=== PATIENT | male | born 1975 | race Two or more races ===

== ENCOUNTER 2022-02-24 09:46 | Outpatient (AMB) | payer BC, SELFPAY ==
[2022-02-24 10:32] VITALS: BP 129/84; PULSE 65; TEMP 36.7; BMI 29.5
--- NOTE | 2022-02-24 10:32 | URONOTE_ITS ---
Intake Vital Signs 02/24/22 10:32 Height 1.83 m Height Method Stated Weight 98.6 kg Weight Measurement Method Standing Scale BMI 29.5 Temp 98.1 F Temp Source Temporal Artery Scan Pulse 65 Pulse Source Monitor BP 129/84 Blood Pressure Source Automatic Cuff Blood Pressure Location Left Upper Arm Position Sitting Intake Visit Reasons: Uro Follow Up 3 Month [employer] System Administrator Required: No Is patient in pain?: No Allergy Allergies NKA* Allergy (Uncoded 02/24/22 10:33) Home Meds Medication Reconciliation tadalafil 10 mg tablet (Cialis) 10 mg PO DIRECTED PRN 11/25/21 [History Confirmed 02/24/22] Nurse Note: Present with Dr Julien during prostate exam. Patient to follow up in 6 months. mvp Fall Screening Do you have a fear of falling?: No Have you had a fall in the last 2 months?: No Do you use an assistive device for ambulation?: No Current Vital Signs Height Height Method Weight Weight Measurement Method Body Mass Index Temperature Temperature Source 1.83 m Stated 98.6 kg Standing Scale 29.5 98.1 F Temporal Artery Scan 02/24/22 10:32 02/24/22 10:32 02/24/22 10:32 02/24/22 10:32 02/24/22 10:32 02/24/22 10:32 02/24/22 10:32 Pulse Rate Pulse Source Blood Pressure Blood Pressure Source Blood Pressure Location Blood Pressure Position 65 Monitor 129/84 Automatic Cuff Left Upper Arm Sitting 02/24/22 10:32 02/24/22 10:32 02/24/22 10:32 02/24/22 10:32 02/24/22 10:32 02/24/22 10:32 Office Procedures Uro Level of Care Nursing/Assessment/Reassessment Patient Status: Established Patient Nursing Assessment/Reassessment: Update [facility] data in EMR, Vital Signs and Medication Reconciliation Coordination of Care: Simp Pt/Fam Ed for care Established Patient Point Assignment: 45 Established Patient Point Charge: EP Level 2 (40-75) Procedure IM Injection: No Transrectal Ultrasound: No Urology Clinic Office Visit Office Visit Date of visit:: February 24, 2022 09:46 Allergies & Home Medications: Allergies NKA* Allergy (Uncoded 11/25/21 08:11) Visit: Reason for visit: [] Office Visit findings: []
[2022-02-24 10:37] LABS: Bilirubin,Urine Clinitek Negative (Negative); Blood,Urine Clinitek Negative (Negative); Glucose, Urine Clinitek Negative (Negative); Ketones,Urine Clinitek Negative (Negative); Leukocyte Esterase,Urine Clin Trace (Negative); Nitrite,Urine Clinitek Negative (Negative); PH,Urine Clinitek 5.5 (5.0-7.0); Protein,Urine Clinitek Negative (Neg - Trace); Specific Gravity,Urine Clin 1.025 (1.001-1.030); Urobilinogen,Urine Clinitek 0.2 mg/dL (0.0-1.0)
--- NOTE | 2022-02-25 06:29 | URONOTEN_ITS ---
RE: ANGELIQUE LOTT : 1975 DATE: 02/24/2022 CHIEF COMPLAINT: 1. BPH with urinary obstruction and LUTS. 2. Erectile dysfunction. HISTORY OF PRESENT ILLNESS: This is a 46-year-old gentleman who is seen in urology office. This patient has a family history of prostate cancer. He has frequency of urination x0 at night, 5 times during the day. IPSS score is 6. Quality of life due to symptom is 1. Past medical history, family history, review of systems, personal history, please refer to patient history form dated 02/24/2022. It is in HPI in EMR. PHYSICAL EXAMINATION: General: Condition is satisfactory. Orientation x3. HEENT: Normocephalic, atraumatic. Eyes: No anemia or jaundice. Neck: Supple. Trachea is central. Thyroid is not enlarged. Extremities: Revealed no edema, cyanosis or clubbing. Vital Signs: Stable. They are in HPI in EMR. Chest: Symmetrical. Heart: Regular rate and rhythm. Abdomen: Soft, nontender. No masses. Liver, spleen, kidney not palpable. No CVA tenderness. Genitalia: Unremarkable. Rectal: Revealed perineum to be normal. External sphincter tone is normal. Prostate is moderately enlarged. No definite induration or asymmetry indicative of prostate cancer. No rectal masses. VARIOUS LABS: His PSA is 1.02 on 02/10/2022. He does have a family history of prostate cancer. RECOMMENDATIONS: Continue with Cialis 10 mg p.o. twice a week. Side effects have been explained to the patient in great detail. Followup appointment in urology office is given. DT: 13:48:35 TT: 15:44:00 Ref: - TID: [id number]
== END 2022-02-24 11:30 | disposition home or self-care (01) ==
LOC: HODURO 09:46
PROVIDERS: PCP Family Medicine; Visit Provider Urology

== ENCOUNTER → 2024-07-21 | Outpatient (BNVA) | payer BC, SELFPAY | END | disposition home or self-care (01) | PROVIDERS: PCP Nurse Practitioner Primary Care; Referring Provider Nurse Practitioner Primary Care; Visit Provider Urology | DX: N40.1 Benign prostatic hyperplasia with lower urinary tract symptoms (principal); R39.12 Poor urinary stream | CPT/HCPCS: 51741; 51798 ==

== ENCOUNTER → 2024-12-30 | Outpatient (BNVA) | payer BC, SELFPAY | END | disposition home or self-care (01) | PROVIDERS: PCP Nurse Practitioner Primary Care; Referring Provider Nurse Practitioner Primary Care; Visit Provider Urology | DX: N40.1 Benign prostatic hyperplasia with lower urinary tract symptoms (principal); N13.8 Other obstructive and reflux uropathy; N52.9 Male erectile dysfunction, unspecified; Z80.42 Family history of malignant neoplasm of prostate | CPT/HCPCS: 81003; 99212; G0463 ==

== ENCOUNTER → 2025-06-15 | Outpatient (CLI) | payer BC, SELFPAY ==
[2025-06-15 10:53] LABS: Prostate Specific Antigen 0.82 ng/mL (0-4.00)
== END | disposition home or self-care (01) ==
LOC: COPL 09:38
PROVIDERS: PCP Internal Medicine; Referring Provider Urology; Visit Provider Urology
DX: R97.20 Elevated prostate specific antigen [PSA] (principal)
CPT/HCPCS: 36415; 84153

== ENCOUNTER → 2025-06-23 | Outpatient (BNVA) | payer BC, SELFPAY | END | disposition home or self-care (01) | PROVIDERS: PCP Internal Medicine; Referring Provider Internal Medicine; Visit Provider Urology | DX: N40.1 Benign prostatic hyperplasia with lower urinary tract symptoms (principal); N13.8 Other obstructive and reflux uropathy; N52.9 Male erectile dysfunction, unspecified; Z80.42 Family history of malignant neoplasm of prostate | CPT/HCPCS: 81003; 99212; G0463 ==

== ENCOUNTER → 2025-07-27 | Outpatient (CLI) | payer BC, SELFPAY ==
--- NOTE | 2025-07-27 10:30 | XR_ITS ---
Ultrasound soft tissue extremity bilateral groin TECHNIQUE: Grayscale sonographic images soft tissue right and left groin Date and time: July 27, 2025, 10:16 a.m. INDICATIONS: Bilateral groin pain and lumps 7 months FINDINGS: Multiple bilateral lymph nodes in the groin regions, the largest on the right side 16 x 10 mm, the largest on the left side 22 x 12 mm Suspicious for bilateral inguinal hernias, on the right side 20 x 18 mm on the left side 19 x 17 mm IMPRESSION: Nonspecific groin lymphadenopathy Bilateral inguinal hernias
== END | disposition home or self-care (01) ==
PROVIDERS: PCP Nurse Practitioner Family; Referring Provider Nurse Practitioner Family; Visit Provider Nurse Practitioner Family
DX: R59.0 Localized enlarged lymph nodes (principal); K40.20 Bilateral inguinal hernia, without obstruction or gangrene, not specified as recurrent
CPT/HCPCS: 76882